=== PATIENT | male | born 1965 | race African-American/Black ===

== ENCOUNTER 2017-06-21 11:08 | Inpatient (IN) | payer OTHER ==
[2017-06-21 11:44] VITALS: BMI 22.9
--- NOTE | 2017-06-21 13:45 | HP ---
CIWA Score - CIWA Score Nausea/Vomitin-No Nausea/No Vomiting Muscle Tremors: 4-Moderate,w/Arms Extend Anxiety: 3 Agitation: 4-Moderately Restless Paroxysmal Sweats: 3 Orientation: 0-Oriented Tacttile Disturbances: 0-None Auditory Disturbances: 0-None Visual Disturbances: 0-None Headache: 0-None Present CIWA-Ar Total Score: 14 Admission ROS BHS - HPI Chief Complaint: I know I have a drinking problem and need help. Allergies/Adverse Reactions: Allergies Allergy/AdvReac Type Severity Reaction Status Date / Time No Known Allergies Allergy Verified 06/21/17 13:08 History of Present Illness: pt is a 52yr old male with a history of alcohol dependence seeking detox for treatment. This is his first time in detox. Exam Limitations: No Limitations - Ebola screening Have you traveled outside of the country in the last 21 days: No Have you had contact with anyone from an Ebola affected area: No Have you been sick,other than usual withdrawal symptoms: No Do you have a fever: No - Review of Systems Constitutional: Loss of Appetite EENT: reports: No Symptoms Reported Respiratory: reports: No Symptoms reported Cardiac: reports: No Symptoms Reported GI: reports: Poor Appetite, Poor Fluid Intake : reports: No Symptoms Reported Musculoskeletal: reports: No Symptoms Reported Integumentary: reports: Flushing Neuro: reports: Tingling, Tremors Endocrine: reports: Excessive Sweating, Flushing, Intolerance to Cold, Intolerance to Heat Hematology: reports: No Symptoms Reported Psychiatric: reports: Judgement Intact, Mood/Affect Appropiate, Orientated x3, Agitated, Anxious Other Systems: Reviewed and Negative Patient History - Patient Medical History Hx Anemia: No Hx Asthma: No Hx Chronic Obstructive Pulmonary Disease (COPD): No Hx Cancer: No Hx Cardiac Disorders: No Hx Congestive Heart Failure: No Hx Hypertension: No Hx Hypercholesterolemia: No Hx Pacemaker: No HX Cerebrovascular Accident: No Hx Seizures: No Hx Dementia: No Hx Diabetes: No Hx Gastrointestinal Disorders: No Hx Liver Disease: No Hx Genitourinary Disorders: No Hx Sexually Transmitted Disorders: No Hx Renal Disease (ESRD): No Hx Thyroid Disease: No Hx Human Immunodeficiency Virus (HIV): No (negative) Hx Hepatitis C: No (negative) Hx Depression: Yes Hx Suicide Attempt: No (denies) Hx Bipolar Disorder: No Hx Schizophrenia: No - Patient Surgical History Past Surgical History: No Hx Neurologic Surgery: No Hx Cataract Extraction: No Hx Cardiac Surgery: No Hx Lung Surgery: No Hx Breast Surgery: No Hx Breast Biopsy: No Hx Abdominal Surgery: No Hx Appendectomy: No Hx Cholecystectomy: No Hx Genitourinary Surgery: No Hx Section: No Hx Orthopedic Surgery: No Anesthesia Reaction: No - PPD History Previous Implant?: Yes Documented Results: Negative w/o proof Implanted On Prior [facility] Admission?: No PPD to be Administered?: Yes - Reproductive History Patient is a Female of Child Bearing Age (11 -55 yrs old): No - Smoking Cessation Smoking history: Current every day smoker Have you smoked in the past 12 months: Yes Aproximately how many cigarettes per day: 10 Hx Chewing Tobacco Use: No Initiated information on smoking cessation: Yes 'Breaking Loose' booklet given: 06/21/17 - Substance & Tx. History Hx Alcohol Use: Yes Hx Substance Use: Yes Substance Use Type: Alcohol, Cocaine, Marijuana Hx Substance Use Treatment: No - Substances Abused Crack Route: Smoking Frequency: Daily Amount used: $60-70 Age of first use: 27 Date of Last Use: 06/20/17 Alcohol-beer Route: Oral Frequency: Daily Amount used: 2-3 6 pks. Age of first use: 20 Date of Last Use: 06/20/17 Marijuana Route: Smoking Frequency: Daily Amount used: $5-10 Age of first use: 30 Date of Last Use: 06/19/17 Family Disease History - Family Disease History Family History: Denies Admission Physical Exam BHS - Vital Signs Vital Signs: Vital Signs - 24 hr 06/21/17 11:40 Temperature 96.4 F L Pulse Rate 68 Respiratory 20 Rate Blood Pressure 97/67 - Physical General Appearance: Yes: Appropriately Dressed, Moderate Distress, Tremorous, Irritable, Sweating, Anxious HEENTM: Yes: Hearing grossly Normal Respiratory: Yes: Lungs Clear, Normal Breath Sounds, No Respiratory Distress Neck: Yes: Within Normal Limits Breast: Yes: Within Normal Limits Cardiology: Yes: Regular Rhythm, Regular Rate, S1, S2 Abdominal: Yes: Normal Bowel Sounds, Non Tender, Soft Genitourinary: Yes: Within Normal Limits Back: Yes: Normal Inspection Musculoskeletal: Yes: full range of Motion Extremities: Yes: Normal Capillary Refill, Normal Inspection, Tremors Neurological: Yes: Fully Oriented, Alert, Normal Response Integumentary: Yes: Normal Color, Diaphoresis Lymphatic: Yes: Within Normal Limits - Diagnostic (1) Alcohol dependence with uncomplicated withdrawal Current Visit: Yes Status: Chronic (2) Cocaine dependence Current Visit: Yes Status: Chronic Qualifiers: Substance use status: uncomplicated Qualified Code(s): F14.20 - Cocaine dependence, uncomplicated (3) Nicotine dependence Current Visit: Yes Status: Chronic Qualifiers: Nicotine product type: cigarettes Substance use status: uncomplicated Qualified Code(s): F17.210 - Nicotine dependence, cigarettes, uncomplicated Cleared for Admission S - Detox or Rehab [facility] Level of Care: Medically Managed Detox Regimen/Protocol: Librium [facility] Breath Alcohol Content Breath Alcohol Content: 0 Urine Drug Screen - Results Drug Screen Negative: No Urine Drug Screen Results: THC-Marijuana, GEREMIAS-Cocaine
[2017-06-21] MEDS ORDERED: NICOTINE POLACRILEX 4 MG GUM BUC PRN (13:50)
[2017-06-21] MEDS ORDERED: hydrOXYzine PAMOATE 50 MG CAPSULE (FP) PO PRN (13:50)
[2017-06-21] MEDS ORDERED: MENTHOL/PHENOL 1 EACH UD MM PRN (13:50)
[2017-06-21] MEDS ORDERED: MAGNESIUM CITRATE 300 ML BOTTLE PO PRN (13:50)
[2017-06-21] MEDS ORDERED: IBUPROFEN 400 MG TABLET (FP) PO PRN (13:50)
[2017-06-21] MEDS ORDERED: MAG HYDROX/AL HYDROX/SIMETH 30 ML UNIT-DOSE CUP PO PRN (13:50)
[2017-06-21] MEDS ORDERED: guaiFENesin/D-METHORPHAN HB 10 ML UNIT-DOSE CUPS PO PRN (13:50)
[2017-06-21] MEDS ORDERED: P-EPHED 60MG/TRIPROLIDI 2.5MG TABLET PO PRN (13:50)
[2017-06-21] MEDS ORDERED: MAGNESIUM HYDROX 2400MG/30ML ORAL SUSPENSION 30 ML CUP PO PRN (13:50)
[2017-06-21] MEDS ORDERED: chlordiazePOXIDE HCL 25 MG CAPSULE PO PRN (13:50)
[2017-06-21] MEDS ORDERED: LOPERAMIDE HCL 2 MG CAPSULE PO PRN (13:50)
[2017-06-21] MEDS ORDERED: ACETAMINOPHEN 325 MG TABLET (FP) PO PRN (13:50)
[2017-06-21] MEDS ORDERED: chlordiazePOXIDE HCL 25 MG CAPSULE PO ONE (14:17)
[2017-06-21] MEDS: chlordiazePOXIDE HCL 25 MG CAPSULE PO SCH ×2 (16:52→22:21)
--- NOTE | 2017-06-21 17:51 | CONSULT ---
[facility] Psychiatric Consult - Data Date of interview: 06/21/17 Admission source: [facility] Identifying data: First admission to [facility] for this 52 y/o AA male seeking detox treatment on for alcohol,cocaine and marijuana dependence.Patient is single without children,domiciled,unemployed and supported on odd jobs. Substance Abuse History: Discussed with the patient in this interview.Mr Hernández confirms this report given at [facility] on admission : Smoking Cessation. Smoking history: Current every day smoker. Have you smoked in the past 12 months: Yes. Aproximately how many cigarettes per day: 10. Hx Chewing Tobacco Use: No. Initiated information on smoking cessation: Yes. 'Breaking Loose' booklet given: 06/21/17. - Substance & Tx. History. Hx Alcohol Use: Yes. Hx Substance Use: Yes. Substance Use Type: Alcohol, Cocaine, Marijuana. Hx Substance Use Treatment: No. - Substances Abused. Crack. Route: Smoking. Frequency: Daily. Amount used: $60-70. Age of first use: 27. Date of Last Use : 06/20/17. Alcohol-beer. Route: Oral. Frequency: Daily. Amount used: 2- 3 6 pks. Age of first use: 20. Date of Last Use: 06/20/17. Marijuana. Route: Smoking. Frequency: Daily. Amount used: $5-10. Age of first use: 30. Date of Last Use: 06/19/17 Medical History: Patient endorses good general health. Psychiatric History: Patient denies. Physical/Sexual Abuse/Trauma History: Patient denies. Additional Comment: Urine Drug Screen Results: THC-Marijuana, GEREMIAS-Cocaine.Noted. Mental Status Exam - Mental Status Exam Alert and Oriented to: Time, Place, Person Cognitive Function: Good Patient Appearance: Well Groomed Mood: Hopeful, Euthymic Affect: Appropriate, Normal Range Patient Behavior: Fatigued, Cooperative Speech Pattern: Clear Voice Loudness: Normal Thought Process: Goal Oriented Thought Disorder: Not Present Hallucinations: Denies Suicidal Ideation: Denies Homicidal Ideation: Denies Insight/Judgement: Poor Sleep: Well Appetite: Good Muscle strength/Tone: Normal Gait/Station: Normal Psychiatric Findings - Problem List ([place] 1, 2,3) (1) Alcohol dependence with uncomplicated withdrawal Current Visit: Yes Status: Acute (2) Cocaine dependence Current Visit: Yes Status: Acute Qualifiers: Substance use status: uncomplicated Qualified Code(s): F14.20 - Cocaine dependence, uncomplicated (3) Nicotine dependence Current Visit: Yes Status: Acute Qualifiers: Nicotine product type: cigarettes Substance use status: uncomplicated Qualified Code(s): F17.210 - Nicotine dependence, cigarettes, uncomplicated - Initial Treatment Plan Initial Treatment Plan: Psychoeducation is provided in this session.Detoxification in progress.Observation.
[2017-06-21 19:04] LABS: URINE APPEARANCE CLEAR; URINE BILIRUBIN NEGATIVE (NEGATIVE); URINE BLOOD NEGATIVE (NEGATIVE); URINE COLOR YELLOW; URINE GLUCOSE (UA) NEGATIVE (NEGATIVE); URINE KETONE NEGATIVE (NEGATIVE); URINE LEUK ESTERASE NEGATIVE (NEGATIVE); URINE NITRITE NEGATIVE (NEGATIVE); URINE PROTEIN NEGATIVE (NEGATIVE); URINE UROBILINOGEN NEGATIVE mg/dL (0.2-1.0)
[2017-06-21] MEDS: THIAMINE HCL 100 MG TABLET (FP) PO SCH (22:21)
[2017-06-22] MEDS: chlordiazePOXIDE HCL 25 MG CAPSULE PO SCH ×4 (06:01→22:42)
[2017-06-22 08:00] LABS: HIV 1 & 2 AB NEGATIVE; HIV 1 AGp24 NEGATIVE
[2017-06-22 10:28] LABS: MCH 28.8 pg (25.7-33.7); MCHC 32.6 g/dl (32.0-35.9); MEAN CELL VOLUME 88.3 fl (80-96); MEAN PLT VOLUME 8.7 fl (7.5-11.1); PLATELET COUNT 257 K/MM3 (134-434); RDW 14.9 % (11.9-15.9); WHITE BLOOD COUNT 5.9 K/mm3 (4.0-10.0)
[2017-06-22] MEDS: PRENATAL VITAMINS W/ FOLIC ACID TABLET (FP) PO SCH (10:32)
[2017-06-22] MEDS: NICOTINE 21 MG/24 HOURS TOPICAL PATCH TD SCH (10:33)
[2017-06-22 10:50] LABS: ALBUMIN 3.9 g/dl (3.4-5.0); ANION GAP 6 (8-16); BILIRUBIN,TOTAL 0.3 mg/dL (0.2-1.0); CALCIUM 9.1 mg/dL (8.5-10.1); CO2 30 mmol/L (21-32); CREATININE 1.1 mg/dL (0.7-1.3); GLUCOSE,RANDOM 81 mg/dL (74-106); SGOT/AST 24 U/L (15-37); SGPT/ALT 37 U/L (12-78)
[2017-06-22 10:51] LABS: ALK PHOS 68 U/L (45-117); TOT PROT 7.3 g/dl (6.4-8.2)
--- NOTE | 2017-06-22 14:20 | PN ---
S CIWA - CIWA Score Nausea/Vomitin-Mild Nausea/No Vomiting Muscle Tremors: 2 Anxiety: 5 Agitation: 3 Paroxysmal Sweats: 2 Orientation: 0-Oriented Tacttile Disturbances: 2-Mild Itch/Numbness/Burn Auditory Disturbances: 1-Very Mild Visual Disturbances: 2-Mild Sensitivity Headache: 0-None Present CIWA-Ar Total Score: 18 BHS Progress Note (SOAP) Subjective: Anxious, sweating, Tremors. Objective: PT. A & O X 3, OBSERVED AMBULATING ON UNIT. NO ACUTE DISTRESS. 06/22/17 14:18 Vital Signs Temperature 97.2 F L 06/22/17 13:47 Pulse Rate 82 06/22/17 13:47 Respiratory Rate 18 06/22/17 13:47 Blood Pressure 97/66 06/22/17 13:47 O2 Sat by Pulse Oximetry (%) Laboratory Tests 06/21/17 06/21/17 06/22/17 13:00 18:53 06:00 WBC 5.9 RBC 5.08 Hgb 14.6 Hct 44.8 MCV 88.3 MCH 28.8 MCHC 32.6 RDW 14.9 Plt Count 257 MPV 8.7 Sodium Potassium Chloride Carbon Dioxide Anion Gap BUN Creatinine Creat Clearance w eGFR Random Glucose Calcium Total Bilirubin AST ALT Alkaline Phosphatase Total Protein Albumin Urine Color Yellow Urine Appearance Clear Urine pH 5.0 Ur Specific [address] [place] 1.025 Urine Protein Negative Urine Glucose (UA) Negative Urine Ketones Negative Urine Blood Negative Urine Nitrite Negative Urine Bilirubin Negative Urine Urobilinogen Negative Ur Leukocyte Esterase Negative RPR Titer HIV 1&2 Antibody Screen Negative HIV P24 Antigen Negative 06/22/17 06/22/17 06:00 06:00 WBC RBC Hgb Hct MCV MCH MCHC RDW Plt Count MPV Sodium 139 Potassium 4.2 Chloride 103 Carbon Dioxide 30 Anion Gap 6 L BUN 18 Creatinine 1.1 Creat Clearance w eGFR > 60 Random Glucose 81 Calcium 9.1 Total Bilirubin 0.3 AST 24 ALT 37 Alkaline Phosphatase 68 Total Protein 7.3 Albumin 3.9 Urine Color Urine Appearance Urine pH Ur Specific S [place] Urine Protein Urine Glucose (UA) Urine Ketones Urine Blood Urine Nitrite Urine Bilirubin Urine Urobilinogen Ur Leukocyte Esterase RPR Titer Nonreactive HIV 1&2 Antibody Screen HIV P24 Antigen LABS NOTED. Assessment: 06/22/17 14:19 WITHDRAWAL SYMPTOMS. Plan: CONTINUE DETOX. INCREASE PO FLUID INTAKE.
[2017-06-22] MEDS: THIAMINE HCL 100 MG TABLET (FP) PO SCH (22:41)
[2017-06-23] MEDS: chlordiazePOXIDE HCL 25 MG CAPSULE PO SCH ×2 (06:09→10:44)
[2017-06-23] MEDS: PRENATAL VITAMINS W/ FOLIC ACID TABLET (FP) PO SCH (10:44)
[2017-06-23] MEDS: NICOTINE 21 MG/24 HOURS TOPICAL PATCH TD SCH (10:45)
--- NOTE | 2017-06-23 14:03 | EKG ---
Test Reason : Blood Pressure : / mmHG Vent. Rate : 071 BPM Atrial Rate : 071 BPM P-R Int : 156 ms QRS Dur : 100 ms QT Int : 388 ms P-R-T Axes : 060 059 055 degrees QTc Int : 421 ms NORMAL SINUS RHYTHM INCOMPLETE RIGHT BUNDLE BRANCH BLOCK ABNORMAL ECG NO PREVIOUS ECGS AVAILABLE Confirmed by VIDAL GODOY, KAYLAN ([id number]) on 06/23/2017 2:03:25 PM Referred By: Yimi Arnett Confirmed By:KAYLAN DRAKE MD
--- NOTE | 2017-06-23 15:13 | PN ---
S CIWA - CIWA Score Nausea/Vomitin Muscle Tremors: 4-Moderate,w/Arms Extend Anxiety: 4-Mod. Anxious/Guarded Agitation: 3 Paroxysmal Sweats: 2 Orientation: 0-Oriented Tacttile Disturbances: 1-Very Mild Itch/Numbness Auditory Disturbances: 0-None Visual Disturbances: 0-None Headache: 1-Very Mild CIWA-Ar Total Score: 18 BHS Progress Note (SOAP) Subjective: Headache, stomach ache, nausea, sweating, tremor Objective: 06/23/17 15:13 Last Vital Signs Temp Pulse Resp BP Pulse Ox 97.0 F L 87 18 113/76 06/23/17 14:10 06/23/17 14:10 06/23/17 14:10 06/23/17 14:10 Laboratory Tests 06/21/17 06/21/17 06/22/17 13:00 18:53 06:00 WBC 5.9 RBC 5.08 Hgb 14.6 Hct 44.8 MCV 88.3 MCH 28.8 MCHC 32.6 RDW 14.9 Plt Count 257 MPV 8.7 Sodium Potassium Chloride Carbon Dioxide Anion Gap BUN Creatinine Creat Clearance w eGFR Random Glucose Calcium Total Bilirubin AST ALT Alkaline Phosphatase Total Protein Albumin Urine Color Yellow Urine Appearance Clear Urine pH 5.0 Ur Specific [place] 1.025 Urine Protein Negative Urine Glucose (UA) Negative Urine Ketones Negative Urine Blood Negative Urine Nitrite Negative Urine Bilirubin Negative Urine Urobilinogen Negative Ur Leukocyte Esterase Negative RPR Titer HIV 1&2 Antibody Screen Negative HIV P24 Antigen Negative 06/22/17 06/22/17 06:00 06:00 WBC RBC Hgb Hct MCV MCH MCHC RDW Plt Count MPV Sodium 139 Potassium 4.2 Chloride 103 Carbon Dioxide 30 Anion Gap 6 L BUN 18 Creatinine 1.1 Creat Clearance w eGFR > 60 Random Glucose 81 Calcium 9.1 Total Bilirubin 0.3 AST 24 ALT 37 Alkaline Phosphatase 68 Total Protein 7.3 Albumin 3.9 Urine Color Urine Appearance Urine pH Ur Specific [place] Urine Protein Urine Glucose (UA) Urine Ketones Urine Blood Urine Nitrite Urine Bilirubin Urine Urobilinogen Ur Leukocyte Esterase RPR Titer Nonreactive HIV 1&2 Antibody Screen HIV P24 Antigen Labs noted Assessment: 06/23/17 15:13 Withdrawal symptoms Plan: Continue detox
[2017-06-23] MEDS: chlordiazePOXIDE 5 MG CAPSULE PO SCH ×2 (17:54→22:29)
[2017-06-23] MEDS: THIAMINE HCL 100 MG TABLET (FP) PO SCH (22:29)
[2017-06-23] MEDS: diphenhydrAMINE HCL 50 MG CAPSULE PO PRN (23:46)
[2017-06-24] MEDS: chlordiazePOXIDE 5 MG CAPSULE PO SCH ×2 (06:25→10:42)
[2017-06-24] MEDS: NICOTINE 21 MG/24 HOURS TOPICAL PATCH TD SCH (10:41)
[2017-06-24] MEDS: PRENATAL VITAMINS W/ FOLIC ACID TABLET (FP) PO SCH (10:42)
--- NOTE | 2017-06-24 12:01 | PN ---
BHS Progress Note (SOAP) Subjective: Tremors. Objective: PT. A & O X 3, OBSERVED AMBULATING ON UNIT. NO ACUTE DISTRESS. PT. DENIES CHEST PAIN. 06/24/17 11:59 Vital Signs Temperature 97.4 F L 06/24/17 09:48 Pulse Rate 84 06/24/17 09:48 Respiratory Rate 20 06/24/17 09:48 Blood Pressure 95/71 06/24/17 09:48 O2 Sat by Pulse Oximetry (%) Laboratory Tests 06/21/17 06/21/17 06/22/17 13:00 18:53 06:00 WBC 5.9 RBC 5.08 Hgb 14.6 Hct 44.8 MCV 88.3 MCH 28.8 MCHC 32.6 RDW 14.9 Plt Count 257 MPV 8.7 Sodium Potassium Chloride Carbon Dioxide Anion Gap BUN Creatinine Creat Clearance w eGFR Random Glucose Calcium Total Bilirubin AST ALT Alkaline Phosphatase Total Protein Albumin Urine Color Yellow Urine Appearance Clear Urine pH 5.0 Ur Specific [place] 1.025 Urine Protein Negative Urine Glucose (UA) Negative Urine Ketones Negative Urine Blood Negative Urine Nitrite Negative Urine Bilirubin Negative Urine Urobilinogen Negative Ur Leukocyte Esterase Negative RPR Titer HIV 1&2 Antibody Screen Negative HIV P24 Antigen Negative 06/22/17 06/22/17 06:00 06:00 WBC RBC Hgb Hct MCV MCH MCHC RDW Plt Count MPV Sodium 139 Potassium 4.2 Chloride 103 Carbon Dioxide 30 Anion Gap 6 L BUN 18 Creatinine 1.1 Creat Clearance w eGFR > 60 Random Glucose 81 Calcium 9.1 Total Bilirubin 0.3 AST 24 ALT 37 Alkaline Phosphatase 68 Total Protein 7.3 Albumin 3.9 Urine Color Urine Appearance Urine pH Ur Specific [place] Urine Protein Urine Glucose (UA) Urine Ketones Urine Blood Urine Nitrite Urine Bilirubin Urine Urobilinogen Ur Leukocyte Esterase RPR Titer Nonreactive HIV 1&2 Antibody Screen HIV P24 Antigen LABS NOTED. Assessment: 06/24/17 12:00 WITHDRAWAL SYMPTOMS. Plan: CONTINUE DETOX. INCREASE PO FLUID INTAKE.
[2017-06-24] MEDS: chlordiazePOXIDE HCL 10 MG CAPSULE PO SCH ×2 (17:26→22:14)
[2017-06-24] MEDS: THIAMINE HCL 100 MG TABLET (FP) PO SCH (22:14)
[2017-06-24] MEDS: diphenhydrAMINE HCL 50 MG CAPSULE PO PRN (22:15)
[2017-06-25] MEDS: chlordiazePOXIDE HCL 10 MG CAPSULE PO SCH (06:00)
[2017-06-25 06:14] VITALS: BP 99/72; PULSE 87; TEMP 96.8
[2017-06-25] MEDS: NICOTINE 21 MG/24 HOURS TOPICAL PATCH TD SCH (09:29)
[2017-06-25] MEDS: PRENATAL VITAMINS W/ FOLIC ACID TABLET (FP) PO SCH (09:29)
--- NOTE | 2017-06-25 10:11 | DS ---
[facility] Detox Discharge Summary Admission Date: 06/21/17 Discharge Date: 06/25/17 - History Present History: Alcohol Dependence, Cocaine Dependence Additional Comments: DETOX COMPLETED. FOLLOW UP AT [facility]. Pertinent Past History: DENIES PMHx HX DEPRESSION - Physical Exam Results Vital Signs: Vital Signs Temperature 96.8 F L 06/25/17 06:13 Pulse Rate 87 06/25/17 06:13 Respiratory Rate 18 06/25/17 06:13 Blood Pressure 99/72 06/25/17 06:13 O2 Sat by Pulse Oximetry (%) Pertinent Admission Physical Exam Findings: WITHDRAWAL SX Laboratory Last Values WBC 5.9 K/mm3 (4.0-10.0) 06/22/17 06:00 RBC 5.08 M/mm3 (4.00-5.60) 06/22/17 06:00 Hgb 14.6 GM/dL (11.7-16.9) 06/22/17 06:00 Hct 44.8 % (35.4-49) 06/22/17 06:00 MCV 88.3 fl (80-96) 06/22/17 06:00 MCH 28.8 pg (25.7-33.7) 06/22/17 06:00 MCHC 32.6 g/dl (32.0-35.9) 06/22/17 06:00 RDW 14.9 % (11.9-15.9) 06/22/17 06:00 Plt Count 257 K/MM3 (134-434) 06/22/17 06:00 MPV 8.7 fl (7.5-11.1) 06/22/17 06:00 Sodium 139 mmol/L (136-145) 06/22/17 06:00 Potassium 4.2 mmol/L (3.5-5.1) 06/22/17 06:00 Chloride 103 mmol/L (98-107) 06/22/17 06:00 Carbon Dioxide 30 mmol/L (21-32) 06/22/17 06:00 Anion Gap 6 (8-16) L 06/22/17 06:00 BUN 18 mg/dL (7-18) 06/22/17 06:00 Creatinine 1.1 mg/dL (0.7-1.3) 06/22/17 06:00 Creat Clearance w eGFR > 60 (>60) 06/22/17 06:00 Random Glucose 81 mg/dL (74-106) 06/22/17 06:00 Calcium 9.1 mg/dL (8.5-10.1) 06/22/17 06:00 Total Bilirubin 0.3 mg/dL (0.2-1.0) 06/22/17 06:00 AST 24 U/L (15-37) 06/22/17 06:00 ALT 37 U/L (12-78) 06/22/17 06:00 Alkaline Phosphatase 68 U/L (45-117) 06/22/17 06:00 Total Protein 7.3 g/dl (6.4-8.2) 06/22/17 06:00 Albumin 3.9 g/dl (3.4-5.0) 06/22/17 06:00 Urine Color Yellow 06/21/17 18:53 Urine Appearance Clear 06/21/17 18:53 Urine pH 5.0 (5.0-8.0) 06/21/17 18:53 Ur Specific [place] 1.025 (1.005-1.025) 06/21/17 18:53 Urine Protein Negative (NEGATIVE) 06/21/17 18:53 Urine Glucose (UA) Negative (NEGATIVE) 06/21/17 18:53 Urine Ketones Negative (NEGATIVE) 06/21/17 18:53 Urine Blood Negative (NEGATIVE) 06/21/17 18:53 Urine Nitrite Negative (NEGATIVE) 06/21/17 18:53 Urine Bilirubin Negative (NEGATIVE) 06/21/17 18:53 Urine Urobilinogen Negative mg/dL (0.2-1.0) 06/21/17 18:53 Ur Leukocyte Esterase Negative (NEGATIVE) 06/21/17 18:53 RPR Titer Nonreactive (NONREACTIVE) 06/22/17 06:00 HIV 1&2 Antibody Screen Negative 06/21/17 13:00 HIV P24 Antigen Negative 06/21/17 13:00 - Treatment Hospital Course: Detox Protocol Followed, Detoxed Safely, Responded well, Discharged Condition Good, Rehab Referral Accepted Patient has Accepted a Rehab Referral to: [facility], [place], [place] - Medication Discharge Medications: Ambulatory Orders NK [No Known Home Medication] 06/21/17 - AMA Did Patient Leave Against Medical Advice: No
== END 2017-06-25 09:31 | disposition home or self-care (01) | DRG 774 ==
LOC: YASAS 11:08 → Y3N 14:12
PROVIDERS: ADMIT Internal Medicine; ATTEND Internal Medicine
PROC: HZ2ZZZZ Detoxification Services for Substance Abuse Treatment (ICD-10-PCS; principal; 2017-06-21)
DX: F10.230 Alcohol dependence with withdrawal, uncomplicated (principal); F14.20 Cocaine dependence, uncomplicated; F12.20 Cannabis dependence, uncomplicated; F17.213 Nicotine dependence, cigarettes, with withdrawal
CPT/HCPCS: 36415; 80053; 81003; 85027; 86593; 87389; 93005; 93010

== ENCOUNTER 2017-10-02 11:23 | Inpatient (IN) | payer OTHER ==
[2017-10-02 11:41] VITALS: BMI 25.1
--- NOTE | 2017-10-02 13:32 | HP ---
MELANIE GODOY Rehab Assess/Revision - Admission History Admitted to Rehab from: [facility] [place] Date of Admission to Rehab: 10/02/17 - Vital signs Vital Signs: Vital Signs Period Temp Pulse Resp BP Sys/Del [place]illo Pulse Ox Last 24 Hr 97.7 F 80 18 105/60 - Findings Detox History & Physical reviewed: Yes Concur with findings: Yes Comments/Additional Findings: PT COMPLETED DETOX ON 3[facility] 09/16/17 TO 09/20/17 AND RETURNED TODAY FOR REHAB AFTERCARE. ALERT O X 3. NAD. VSS. ADMIT TO REHAB TODAY. Inpatient Rehab Admission - Initial Determination Are CD services needed?: Yes Free of communicable disease: Yes Not in need of hospitalization: Yes - Rehab Admission Criteria Patient is meeting Inpatient Rehab admission criteria:: Yes
[2017-10-02] MEDS ORDERED: LOPERAMIDE HCL 2 MG CAPSULE PO PRN (13:35)
[2017-10-02] MEDS ORDERED: P-EPHED 60MG/TRIPROLIDI 2.5MG TABLET PO PRN (13:35)
[2017-10-02] MEDS ORDERED: guaiFENesin/D-METHORPHAN HB 10 ML UNIT-DOSE CUPS PO PRN (13:35)
[2017-10-02] MEDS ORDERED: IBUPROFEN 400 MG TABLET (FP) PO PRN (13:35)
[2017-10-02] MEDS ORDERED: MAGNESIUM HYDROX 2400MG/30ML ORAL SUSPENSION 30 ML CUP PO PRN (13:35)
[2017-10-02] MEDS ORDERED: MENTHOL/PHENOL 1 EACH UD MM PRN (13:35)
[2017-10-02] MEDS ORDERED: MAGNESIUM CITRATE 300 ML BOTTLE PO PRN (13:35)
[2017-10-02 18:44] LABS: URINE APPEARANCE SLCLOUDY; URINE BILIRUBIN NEGATIVE (NEGATIVE); URINE BLOOD NEGATIVE (NEGATIVE); URINE COLOR YELLOW; URINE GLUCOSE (UA) NEGATIVE (NEGATIVE); URINE KETONE NEGATIVE (NEGATIVE); URINE NITRITE NEGATIVE (NEGATIVE); URINE PROTEIN NEGATIVE (NEGATIVE); URINE UROBILINOGEN NEGATIVE mg/dL (0.2-1.0)
[2017-10-02 21:05] LABS: URINE LEUK ESTERASE Negative (NEGATIVE)
[2017-10-02] MEDS: THIAMINE HCL 100 MG TABLET (FP) PO SCH (21:34)
[2017-10-02] MEDS: NICOTINE 14 MG/24 HOURS TOPICAL PATCH TD SCH (21:35)
[2017-10-02] MEDS: hydrOXYzine PAMOATE 25 MG CAPSULE (FP) PO PRN (21:36)
[2017-10-02] MEDS: NICOTINE POLACRILEX 2 MG GUM BUC PRN (21:37)
[2017-10-03] MEDS: NICOTINE 14 MG/24 HOURS TOPICAL PATCH TD SCH (10:11)
[2017-10-03] MEDS: PRENATAL VITAMINS W/ FOLIC ACID TABLET (FP) PO SCH (10:11)
[2017-10-03] MEDS: NICOTINE POLACRILEX 2 MG GUM BUC PRN ×2 (10:12→21:28)
[2017-10-03] MEDS ORDERED: PNEUMOCOCCAL 23 VACCINE 0.5 ML VIAL IM ONE (12:00)
[2017-10-03] MEDS ORDERED: FLU VACCINE QUAD 60 MCG/0.5 ML (MDV 17-18) IM ONE (12:00)
[2017-10-03] MEDS ORDERED: PNEUMOC 13-VAL CONJ-DIP CRM/PF 0.5 ML DISP.SYRIN IM ONE (12:00)
[2017-10-03] MEDS: THIAMINE HCL 100 MG TABLET (FP) PO SCH (21:27)
[2017-10-03] MEDS: hydrOXYzine PAMOATE 25 MG CAPSULE (FP) PO PRN (21:28)
[2017-10-04] MEDS: NICOTINE 14 MG/24 HOURS TOPICAL PATCH TD SCH (10:12)
[2017-10-04] MEDS: PRENATAL VITAMINS W/ FOLIC ACID TABLET (FP) PO SCH (10:12)
--- NOTE | 2017-10-04 14:43 | HP ---
Psychiatrist Admission - Data Date of interview: 10/04/17 Admission source: [facility]/ Identifying data: This is the first 5N inpatient rehabilitation admission for this 52 year old AA male who is single without children, domiciled, unemployed and supported on odd jobs. Medical History: Reports a good physical health. Smokes cigarettes 10 a day. Psychiatric History: Patient denies history of psychiatric treatment Physical/Sexual Abuse/Trauma History: Patient denies history of abuse. Vital Signs: Vital Signs - 24 hr 10/04/17 10/04/17 10/04/17 00:30 03:30 06:58 Temperature 98.8 F Pulse Rate 59 L Respiratory 18 18 18 Rate Blood Pressure 110/68 Allergies/Adverse Reactions: Allergies Allergy/AdvReac Type Severity Reaction Status Date / Time No Known Allergies Allergy Verified 10/02/17 15:25 Date of last physical exam: 10/02/17 Concur with the findings of this exam: Yes - Substance Abuse/Tx History Hx Alcohol Use: Yes (age at first use 21,daily beer 1case) Substance Use Type: Cocaine (started at age of 29, daily 2 bags ), Marijuana ( started at age of 16, daily use) Mental Status Exam - Mental Status Exam Alert and Oriented to: Time, Place, Person Cognitive Function: Good Patient Appearance: Well Groomed Mood: Hopeful Affect: Appropriate, Mood Congruent Patient Behavior: Appropriate, Cooperative Speech Pattern: Appropriate Voice Loudness: Normal Thought Process: Intact, Goal Oriented Thought Disorder: Not Present Hallucinations: Denies Suicidal Ideation: Denies Homicidal Ideation: Denies Insight/Judgement: Fair Sleep: Fair Appetite: Fair Muscle strength/Tone: Normal Gait/Station: Normal Psychiatric Findings - Problem List ([place] 1, 2,3) (1) Cocaine dependence Current Visit: Yes Status: Acute (2) Cannabis dependence Current Visit: Yes Status: Acute (3) Nicotine dependence Current Visit: Yes Status: Acute Qualifiers: Nicotine product type: cigarettes Substance use status: in withdrawal Qualified Code(s): F17.213 - Nicotine dependence, cigarettes, with withdrawal
[2017-10-04] MEDS: NICOTINE POLACRILEX 2 MG GUM BUC PRN (21:52)
[2017-10-04] MEDS: THIAMINE HCL 100 MG TABLET (FP) PO SCH (21:52)
[2017-10-04] MEDS: hydrOXYzine PAMOATE 25 MG CAPSULE (FP) PO PRN (22:08)
[2017-10-05] MEDS: NICOTINE 14 MG/24 HOURS TOPICAL PATCH TD SCH (10:38)
[2017-10-05] MEDS: PRENATAL VITAMINS W/ FOLIC ACID TABLET (FP) PO SCH (10:39)
[2017-10-05] MEDS: NICOTINE POLACRILEX 2 MG GUM BUC PRN ×3 (10:40→21:33)
[2017-10-05] MEDS ORDERED: PNEUMOCOCCAL 23 VACCINE 0.5 ML VIAL IM ONE (12:00)
[2017-10-05] MEDS ORDERED: FLU VACCINE QUAD 60 MCG/0.5 ML (MDV 17-18) IM ONE (12:00)
[2017-10-05] MEDS ORDERED: PNEUMOC 13-VAL CONJ-DIP CRM/PF 0.5 ML DISP.SYRIN IM ONE (12:00)
[2017-10-05] MEDS: hydrOXYzine PAMOATE 25 MG CAPSULE (FP) PO PRN (21:32)
[2017-10-05] MEDS: THIAMINE HCL 100 MG TABLET (FP) PO SCH (21:32)
[2017-10-06] MEDS: PRENATAL VITAMINS W/ FOLIC ACID TABLET (FP) PO SCH (10:39)
[2017-10-06] MEDS: ACETAMINOPHEN 325 MG TABLET (FP) PO PRN (10:40)
[2017-10-06] MEDS: NICOTINE POLACRILEX 2 MG GUM BUC PRN ×2 (10:41→21:45)
[2017-10-06] MEDS: NICOTINE 14 MG/24 HOURS TOPICAL PATCH TD SCH (10:43)
[2017-10-06] MEDS: THIAMINE HCL 100 MG TABLET (FP) PO SCH (21:44)
[2017-10-06] MEDS: hydrOXYzine PAMOATE 25 MG CAPSULE (FP) PO PRN (21:45)
[2017-10-07] MEDS: PRENATAL VITAMINS W/ FOLIC ACID TABLET (FP) PO SCH (10:22)
[2017-10-07] MEDS: NICOTINE 14 MG/24 HOURS TOPICAL PATCH TD SCH (10:23)
[2017-10-07] MEDS: NICOTINE POLACRILEX 2 MG GUM BUC PRN ×2 (10:23→21:54)
[2017-10-07] MEDS: THIAMINE HCL 100 MG TABLET (FP) PO SCH (21:52)
[2017-10-07] MEDS: hydrOXYzine PAMOATE 25 MG CAPSULE (FP) PO PRN (21:52)
[2017-10-07] MEDS: ACETAMINOPHEN 325 MG TABLET (FP) PO PRN (21:53)
[2017-10-08] MEDS: NICOTINE 14 MG/24 HOURS TOPICAL PATCH TD SCH (10:17)
[2017-10-08] MEDS: PRENATAL VITAMINS W/ FOLIC ACID TABLET (FP) PO SCH (10:17)
[2017-10-08] MEDS: NICOTINE POLACRILEX 2 MG GUM BUC PRN ×2 (10:18→21:42)
[2017-10-08] MEDS: THIAMINE HCL 100 MG TABLET (FP) PO SCH (21:40)
[2017-10-08] MEDS: hydrOXYzine PAMOATE 25 MG CAPSULE (FP) PO PRN (21:40)
[2017-10-08] MEDS: ACETAMINOPHEN 325 MG TABLET (FP) PO PRN (21:41)
[2017-10-09] MEDS: PRENATAL VITAMINS W/ FOLIC ACID TABLET (FP) PO SCH (10:16)
[2017-10-09] MEDS: NICOTINE 14 MG/24 HOURS TOPICAL PATCH TD SCH (10:16)
[2017-10-09] MEDS: NICOTINE POLACRILEX 2 MG GUM BUC PRN ×2 (10:16→21:45)
[2017-10-09] MEDS: THIAMINE HCL 100 MG TABLET (FP) PO SCH (21:43)
[2017-10-09] MEDS: hydrOXYzine PAMOATE 25 MG CAPSULE (FP) PO PRN (21:44)
[2017-10-09] MEDS: ACETAMINOPHEN 325 MG TABLET (FP) PO PRN (21:44)
[2017-10-10] MEDS: NICOTINE 14 MG/24 HOURS TOPICAL PATCH TD SCH (10:32)
[2017-10-10] MEDS: PRENATAL VITAMINS W/ FOLIC ACID TABLET (FP) PO SCH (10:32)
[2017-10-10] MEDS: NICOTINE POLACRILEX 2 MG GUM BUC PRN ×2 (10:33→21:39)
[2017-10-10] MEDS: THIAMINE HCL 100 MG TABLET (FP) PO SCH (21:39)
[2017-10-10] MEDS: hydrOXYzine PAMOATE 25 MG CAPSULE (FP) PO PRN (21:39)
[2017-10-11] MEDS: PRENATAL VITAMINS W/ FOLIC ACID TABLET (FP) PO SCH (10:11)
[2017-10-11] MEDS: NICOTINE 14 MG/24 HOURS TOPICAL PATCH TD SCH (10:11)
[2017-10-11] MEDS: NICOTINE POLACRILEX 2 MG GUM BUC PRN ×2 (10:12→21:31)
[2017-10-11] MEDS: MAG HYDROX/AL HYDROX/SIMETH 30 ML UNIT-DOSE CUP PO PRN (15:32)
[2017-10-11] MEDS: THIAMINE HCL 100 MG TABLET (FP) PO SCH (21:30)
[2017-10-11] MEDS: hydrOXYzine PAMOATE 25 MG CAPSULE (FP) PO PRN (21:31)
[2017-10-12] MEDS: PRENATAL VITAMINS W/ FOLIC ACID TABLET (FP) PO SCH (10:08)
[2017-10-12] MEDS: NICOTINE 14 MG/24 HOURS TOPICAL PATCH TD SCH (10:08)
[2017-10-12] MEDS: NICOTINE POLACRILEX 2 MG GUM BUC PRN (10:09)
[2017-10-12] MEDS: hydrOXYzine PAMOATE 25 MG CAPSULE (FP) PO PRN (21:41)
[2017-10-12] MEDS: THIAMINE HCL 100 MG TABLET (FP) PO SCH (21:41)
[2017-10-12] MEDS: MAG HYDROX/AL HYDROX/SIMETH 30 ML UNIT-DOSE CUP PO PRN (21:42)
[2017-10-13] MEDS: NICOTINE POLACRILEX 2 MG GUM BUC PRN ×2 (10:33→21:43)
[2017-10-13] MEDS: NICOTINE 14 MG/24 HOURS TOPICAL PATCH TD SCH (10:33)
[2017-10-13] MEDS: PRENATAL VITAMINS W/ FOLIC ACID TABLET (FP) PO SCH (10:33)
[2017-10-13] MEDS: hydrOXYzine PAMOATE 25 MG CAPSULE (FP) PO PRN (21:39)
[2017-10-13] MEDS: THIAMINE HCL 100 MG TABLET (FP) PO SCH (21:39)
[2017-10-13] MEDS: ACETAMINOPHEN 325 MG TABLET (FP) PO PRN (21:41)
[2017-10-13] MEDS: MAG HYDROX/AL HYDROX/SIMETH 30 ML UNIT-DOSE CUP PO PRN (21:42)
[2017-10-14] MEDS: NICOTINE 14 MG/24 HOURS TOPICAL PATCH TD SCH (10:27)
[2017-10-14] MEDS: PRENATAL VITAMINS W/ FOLIC ACID TABLET (FP) PO SCH (10:27)
[2017-10-14] MEDS: NICOTINE POLACRILEX 2 MG GUM BUC PRN ×2 (10:28→21:42)
[2017-10-14] MEDS: hydrOXYzine PAMOATE 25 MG CAPSULE (FP) PO PRN (21:41)
[2017-10-14] MEDS: THIAMINE HCL 100 MG TABLET (FP) PO SCH (21:41)
[2017-10-15] MEDS: PRENATAL VITAMINS W/ FOLIC ACID TABLET (FP) PO SCH (10:43)
[2017-10-15] MEDS: NICOTINE 14 MG/24 HOURS TOPICAL PATCH TD SCH (10:43)
[2017-10-15] MEDS: NICOTINE POLACRILEX 2 MG GUM BUC PRN ×2 (10:43→21:46)
[2017-10-15] MEDS: ACETAMINOPHEN 325 MG TABLET (FP) PO PRN (17:49)
[2017-10-15] MEDS: MAG HYDROX/AL HYDROX/SIMETH 30 ML UNIT-DOSE CUP PO PRN (21:46)
[2017-10-15] MEDS: hydrOXYzine PAMOATE 25 MG CAPSULE (FP) PO PRN (21:46)
[2017-10-15] MEDS: THIAMINE HCL 100 MG TABLET (FP) PO SCH (21:46)
[2017-10-16] MEDS: NICOTINE 14 MG/24 HOURS TOPICAL PATCH TD SCH (10:32)
[2017-10-16] MEDS: PRENATAL VITAMINS W/ FOLIC ACID TABLET (FP) PO SCH (10:32)
[2017-10-16] MEDS: NICOTINE POLACRILEX 2 MG GUM BUC PRN ×2 (10:33→21:50)
[2017-10-16] MEDS: THIAMINE HCL 100 MG TABLET (FP) PO SCH (21:50)
[2017-10-16] MEDS: hydrOXYzine PAMOATE 25 MG CAPSULE (FP) PO PRN (21:50)
[2017-10-17 07:16] VITALS: BP 110/70; PULSE 72; TEMP 98.2
[2017-10-17] MEDS: PRENATAL VITAMINS W/ FOLIC ACID TABLET (FP) PO SCH (10:35)
[2017-10-17] MEDS: NICOTINE POLACRILEX 2 MG GUM BUC PRN (10:36)
[2017-10-17] MEDS: NICOTINE 14 MG/24 HOURS TOPICAL PATCH TD SCH (10:36)
--- NOTE | 2017-10-17 11:05 | PN ---
Psychiatric Progress Note Vital Signs: Vital Signs Period Temp Pulse Resp BP Sys/Del Castillo Pulse Ox Last 24 Hr 98.2 F 72 16-16 110/70 Date of Session: 10/17/17 Chief Complaint:: discharge visit HPI: Patient has addressed alcoohl, cannabis and nicotine dependence. ROS: WNL Current Medications: Active Medications Generic Name Dose Route Start Last Admin Trade Name Freq PRN Reason Stop Dose Admin Acetaminophen 650 mg 10/02/17 13:35 10/15/17 17:49 Tylenol - PO 650 mg Q4H PRN Administration PAIN Al Hydroxide/Mg Hydroxide 30 ml 10/02/17 13:35 10/15/17 21:46 Mylanta Oral Suspension - PO 30 ml Q6H PRN Administration DYSPEPSIA Eucalyptus/Menthol/Phenol/Sorbitol 1 each 10/02/17 13:35 Cepastat Lozenge - MM Q4H PRN SORE THROAT Guaifenesin 10 ml 10/02/17 13:35 Robitussin Dm - PO Q6H PRN COUGH Hydroxyzine Pamoate 25 mg 10/02/17 13:35 10/16/17 21:50 Vistaril - PO 25 mg Q4H PRN Administration AGITATION Ibuprofen 400 mg 10/02/17 13:35 Motrin - PO Q6H PRN SEVERE PAIN Loperamide HCl 4 mg 10/02/17 13:35 Imodium - PO Q6H PRN DIARRHEA Magnesium Citrate 300 ml 10/02/17 13:35 Citroma - PO Q48H PRN CONSTIPATION Magnesium Hydroxide 30 ml 10/02/17 13:35 Milk Of Magnesia - PO DAILY PRN CONSTIPATION Nicotine 14 mg 10/02/17 13:45 10/17/17 10:36 Nicoderm Patch - TD Not Given DAILY DOMONIQUE Nicotine Polacrilex 2 mg 10/02/17 13:35 10/17/17 10:36 Nicorette Gum - BUC 2 mg Q2H PRN Administration NICOTINE REPLACEMENT RX Multivit/Folic Acid/Iron 1 tab 10/03/17 10:00 10/17/17 10:35 Vitamins (Sjr) - PO 1 tab DAILY DOMONIQUE Administration Pseudoephedrine/Triprolidine 1 combo 10/02/17 13:35 Actifed - PO TID PRN NASAL CONGESTION Thiamine HCl 100 mg 10/02/17 22:00 10/16/17 21:50 Vitamin B1 - PO 100 mg HS DOMONIQUE Administration Current Side Effect: No Lab tests ordered: No Lab tests reviewed: Yes Provider note:: Patient has completed today his treatment and met his goals, will contineu to address his issues at [facility]. He gained insights on his negative behavior, relapse triggers and importance of chanding attitudes for the utilization of supports to prevent relapses. Patient was encourage to continue maintain abstience, stable for discharge today. Total face to face time:: 25 Mental Status Exam - Mental Status Exam Alert and Oriented to: Time, Place, Person Cognitive Function: Good Patient Appearance: Well Groomed Mood: Hopeful Patient Behavior: Appropriate, Cooperative Speech Pattern: Clear, Appropriate Voice Loudness: Normal Thought Process: Intact, Goal Oriented Thought Disorder: Not Present Hallucinations: Denies Suicidal Ideation: Denies Homicidal Ideation: Denies Insight/Judgement: Fair Sleep: Fair Appetite: Good Muscle strength/Tone: Normal Gait/Station: Normal Psychiatric Treatment Plan - Problem List (1) Cocaine dependence Current Visit: Yes (2) Cannabis dependence Current Visit: Yes (3) Nicotine dependence Current Visit: Yes Qualifiers: Nicotine product type: cigarettes Substance use status: in withdrawal Qualified Code(s): F17.213 - Nicotine dependence, cigarettes, with withdrawal
== END 2017-10-17 11:00 | disposition home or self-care (01) | DRG 772 ==
LOC: YASAS 11:23 → Y5N 13:44
PROVIDERS: ADMIT Psychiatry & Neurology Psychiatry; ATTEND Psychiatry & Neurology Psychiatry
PROC: HZ42ZZZ Group Counseling for Substance Abuse Treatment, Cognitive-Behavioral (ICD-10-PCS; principal; 2017-10-02)
DX: F14.20 Cocaine dependence, uncomplicated (principal); F12.20 Cannabis dependence, uncomplicated; F17.210 Nicotine dependence, cigarettes, uncomplicated
CPT/HCPCS: 81003; 90688; 90732; G0008; G0009